=== PATIENT | female | born 1955 | race Caucasian/White ===

== ENCOUNTER → 2019-08-16 | Outpatient (CLI) | payer MEDICARE, OTHER ==
[~2019-08-16] MED LIST: ALBUTEROL INH; ATENOLOL 25 MG25 M1 PO; ATENOLOL 50MG T50 M1 PO; AZITHROMYCIN 2250 MG; AZITHROMYCIN 2250 MG PO; BENZONATATE; BROVANA15 MCG/2 M IH; DUONEB 2.5-0.5 M3 ML INH; GUAIFENESIN AC473 ML PO; LASIX; LASIX 10 MG/10 MG/M1; LASIX 40 MG TAB40 MG PO; LEVAQUIN; LEVAQUIN 500 M500 MG PO; LEVAQUIN 750 M750 MG PO; LORTAB 5-500 T1 EAC1 PO; MEDROL DOSPAK21 TA1 PO; MULTIVITAMINS PO; NEXIUM40 MG PO; NORCO 5-325 TA1 EACH PO; OMEPRAZOLE40 MG PO; POTASSIUM PO; POTASSIUM-9999 MG PO; PREDNISONE 10 M10 M1 PO; PRILOSEC40 MG PO; QUALAQUIN324 MG; SINGULAIR 10 MG10 M1 PO; TAMIFLU75 MG PO; VICODIN 5-5001 EACH PO; VIT D PO; VITAMIN D 5050000 I1 PO; ZEBUTAL
[2019-08-16 10:16] LABS: ABSOLUTE BASOPHILS 0.1 thou/uL (0.0-0.2); ABSOLUTE EOSINOPHILS 0.2 thou/uL (0.0-0.7); ABSOLUTE LYMPHOCYTES 1.8 thou/uL (0.8-5.3); ABSOLUTE MONOCYTES 0.5 thou/uL (0.0-1.2); ABSOLUTE NEUTROPHILS 5.7 thou/uL (1.6-8.1); BASOPHILS 1.1 %; EOSINOPHILS 2.5 %; HEMATOCRIT 40.4 % (37.0-47.0); HEMOGLOBIN 13.7 gm/dL (12.0-15.0); LYMPHOCYTES 21.6 %; MCH 30.2 pg (26.0-34.0); MCHC 33.8 g/dL (28.0-37.0); MCV 89.2 fL (80.0-100.0); MONOCYTES 5.6 %; MPV 8.6 fl. (7.2-11.1); NUCLEATED RBCS 0 /100WBC; PLATELET COUNT* 316 thou/uL (150-400); POLYS 69.2 %; RBC 4.53 mil/uL (4.20-5.00); RDW-CV 13.9 % (10.5-14.5); WBC 8.2 thou/uL (4.0-11.0)
[2019-08-16 10:32] LABS: ALBUMIN 3.3 g/dL (3.4-5.0); CALCIUM 8.4 mg/dL (8.5-10.1); CREATININE 0.8 mg/dL (0.6-1.3); POTASSIUM 3.8 mmol/L (3.5-5.1); TOTAL BILIRUBIN 0.5 mg/dL (<0.1-1.0); TOTAL PROTEIN 6.9 g/dL (6.4-8.2)
[2019-08-16 11:20] LABS: ESR (SEDRATE) 23 mm/hr (0-30)
[2019-08-18 11:11] LABS: ANA INTERPRETATION Negative (Negative)
== END ==
LOC: M.LAB 09:52
PROVIDERS: Internal Medicine
DX: I73.00 Raynaud's syndrome without gangrene (principal)

== ENCOUNTER 2020-12-22 18:04 | Observation (INO) | payer MEDICARE, OTHER ==
[~2020-12-22] VITALS: Ht 162.6 cm; Wt 141.1 kg
[2020-12-22 18:09] VITALS: BP 189/72
[2020-12-22] MEDS ORDERED: COQ-1030 MG PO (18:14)
[2020-12-22] MEDS ORDERED: MAGNESIUM250 M1 PO (18:14)
[2020-12-22] MEDS ORDERED: ZINC30 M1 PO (18:14)
[2020-12-22] MEDS ORDERED: LIPITOR40 MG PO (18:14)
[2020-12-22] MEDS ORDERED: FOLIC ACID1 MG PO (18:14)
[2020-12-22 19:26] LABS: ABSOLUTE BASOPHILS 0.1 thou/uL (0.0-0.2); ABSOLUTE EOSINOPHILS 0.2 thou/uL (0.0-0.7); ABSOLUTE LYMPHOCYTES 2.2 thou/uL (0.8-5.3); ABSOLUTE MONOCYTES 0.7 thou/uL (0.0-1.2); ABSOLUTE NEUTROPHILS 7.5 thou/uL (1.6-8.1); BASOPHILS 1.1 %; EOSINOPHILS 1.8 %; HEMATOCRIT 39.7 % (37.0-47.0); HEMOGLOBIN 13.7 gm/dL (12.0-15.0); LYMPHOCYTES 20.1 %; MCH 31.5 pg (26.0-34.0); MCHC 34.4 g/dL (28.0-37.0); MCV 91.5 fL (80.0-100.0); MONOCYTES 6.6 %; MPV 8.7 fl. (7.2-11.1); NUCLEATED RBCS 0 /100WBC; PLATELET COUNT* 328 thou/uL (150-400); POLYS 70.4 %; RBC 4.34 mil/uL (4.20-5.00); WBC 10.7 thou/uL (4.0-11.0)
[2020-12-22 19:36] LABS: CALCIUM 8.6 mg/dL (8.5-10.1); CREATININE 0.9 mg/dL (0.6-1.3); POTASSIUM 3.9 mmol/L (3.5-5.1)
[2020-12-22 19:40] LABS: ALBUMIN 3.4 g/dL (3.4-5.0); TOTAL BILIRUBIN 0.3 mg/dL (<0.1-1.0); TOTAL PROTEIN 6.9 g/dL (6.4-8.2)
[2020-12-22 20:43] LABS: URINE BILIRUBIN NEGATIVE (Negative); URINE BLOOD NEGATIVE (Negative); URINE CLARITY CLEAR; URINE COLOR YELLOW; URINE GLUCOSE-RANDOM NEGATIVE (Negative); URINE KETONES TRACE (Negative); URINE LEUKOCYTES-REFLEX NEGATIVE (Negative); URINE NITRITE-REFLEX NEGATIVE (Negative); URINE PROTEIN NEGATIVE (Negative); URINE SPECIFIC GRAVITY <= 1.005 (1.005-1.030); URINE UROBILINOGEN 0.2 E.U./dl (0.2-1.0)
[2020-12-23] VITALS: BP 161/57
[2020-12-23 00:15] VITALS: BP 173/94
[2020-12-23 04:00] VITALS: BP 125/23
--- NOTE | 2020-12-23 05:55 | NUR ---
RECEIVED PT FROM ED AT APPROX 0015. PT IS AWAKE AND ORIENTED X4. PT IS TRACING SR ON THE [employer]. PT DENIES CHEST PAIN/DISCOMFORT. NO DESATURATIONS NOTED ON ROOM AIR. ADMISSION ASSESSMENT DONE AND CHARTED. PT IS ADVISED ON THE USE OF CALL LIGHT AND THE ROOM SET UP, AND TO REPORT CHEST PAIN PROMPTLY. NO ACUTE CHANGES THIS SHIFT.
[2020-12-23 08:00] VITALS: BP 144/53
[2020-12-23 11:14] LABS: CHOLESTEROL 138 mg/dL (<200); HDL CHOLESTEROL 47 mg/dL (>40); LDL CHOLESTEROL 64 mg/dL (<100); TC:HDL 2.9 Ratio (Not establshd); TRIGLYCERIDE 137 mg/dL (<150); VLDL 27 mg/dL (<40)
[2020-12-23 11:17] LABS: SERUM ASSESSMENT Clear
[2020-12-23 12:00] VITALS: BP 138/38
[2020-12-23 15:34] VITALS: BP 138/38
--- NOTE | 2020-12-23 15:50 | NUR ---
Patient verbalized understanding of d/c papers, no complaints at this time. has all belongings, IV taken out, monitor taken off. taken out by wheelchair by nursing staff.
[2020-12-24 05:36] LABS: GLYCOHEMOGLOBIN (HGB A1C) 9.8 % (4.8-5.6)
--- NOTE | 2020-12-25 17:03 | EKG ---
[place] [address] ELECTROCARDIOGRAM REPORT Name: ABIMAEL HOSKINS Room: [address]#: [id number] Admission: 12/22/20 Attend Phys: Doyle Freeman Discharge: 12/23/20 Date of : 51 Date of Service: 12/22/201816 Report #: [id number] THIS REPORT FOR: //name// [facility] ED Test Date: 2020-12-22 Test Time: 18:17:12 Pat Name: ABIMAEL HOSKINS Department: Room: [facility] Gender: F [employer] Money Advisor: TEN : 1955 Requested By: Cam Gutierrez Order Number: [id number] MD: Kyaw Duff Measurements Intervals [place] Rate: 73 P: 60 [place]: 197 QRS: 29 QRSD: 90 T: 53 QT: 395 QTc: 436 Interpretive Statements Sinus rhythm Consider left atrial enlargement Abnormal R-wave progression, early transition Baseline wander in lead(s) I,II,aVR,aVL,V2 Compared to ECG 12/25/2015 11:17:09 No significant changes Electronically Signed On 12-25-2020 17:03:04 CDT by Kyaw Duff [email or web address] <ELECTRONICALLY SIGNED> By: Kyaw Duff MD, [facility] 12/25/20 1703 16 16 Kyaw Duff MD, [facility] /EPI
== END 2020-12-23 15:55 | disposition home or self-care (01) ==
LOC: M.ERS 18:04 → M.TBA-ER 20:26 → M.2W 22:47
PROVIDERS: Internal Medicine; Physician Assistant; Registered Nurse; ADMIT Internal Medicine; ATTEND Internal Medicine
DX: R07.89 Other chest pain (principal); R68.84 Jaw pain; Z20.822 Contact with and (suspected) exposure to COVID-19; R74.8 Abnormal levels of other serum enzymes; I89.0 Lymphedema, not elsewhere classified; Z79.899 Other long term (current) drug therapy; Z88.0 Allergy status to penicillin